=== PATIENT | male | born 1980 | race Hispanic/Latino ===

== ENCOUNTER 2021-08-20 16:59 | Emergency (ER) | payer SELFPAY ==
[2021-08-20 19:10] LABS: #Basophils 0.1 10x3/uL (0.0-0.2); #Eosinphils 1.3 10x3/uL (0.0-0.5); #Monocytes 0.4 10x3/uL (0.0-1.1); #Neutrophils 6.5 10x3/uL (1.5-8.4); %Basophils 0.9 % (0.0-2.0); %Eosinophils 11.7 % (0.0-6.0); %Lymphocytes 26.6 % (18.0-47.0); %Monocytes 3.3 % (0.0-10.0); Hemoglobin 18.1 g/dL (13.5-17.5); Mean Corpuscular HGB CONC 35.7 g/dL (32.0-36.0); Mean Corpuscular Hemoglobin 29.6 pg (27.0-33.0); Mean Platelet Volume 11.1 fl (7.4-10.4); Platelet Count 123 10x3/uL (150-450); RBC Distribution Width 12.4 % (11.5-14.5); Red Blood Cell (RBC) Count 6.11 10x6/uL (4.32-5.72); White Blood Cell (WBC) Count 11.4 10x3/uL (3.5-10.5)
[2021-08-20 19:22] LABS: ALT (SGPT) 16 U/L (8-55); AST (SGOT) 12 U/L (5-34); Albumin 3.6 g/dL (3.5-5.0); Alkaline Phosphatase 103 U/L (40-110); Anion Gap 15 mmol/L (10-20); BUN (Urea Nitrogen) 12 mg/dL (8.9-20.6); Bilirubin, Total 0.9 mg/dL (0.2-1.2); Calc. Creatinine Clearance 0 mL/min (70-130); Calcium 8.7 mg/dL (7.8-10.44); Carbon Dioxide 26 mmol/L (22-29); Chloride 99 mmol/L (98-107); Estimated GFR 112; Globulin 3.2 g/dL (2.4-3.5); Glucose 375 mg/dL (70-105); Lipase 14 U/L (8-78); Potassium 3.9 mmol/L (3.5-5.1); Protein, Total 6.8 g/dL (6.0-8.3); Sodium 136 mmol/L (136-145)
[2021-08-20 19:53] LABS: Bilirubin Neg (Negative); Blood, Urine Negative (Negative); Clarity Clear (Clear); Glucose, Urine (Dipstick) >=1000 mg/dL (Negative); Ketone, Urine 15 mg/dL (Negative); Leukocyte Negative (Negative); Nitrite Negative (Negative); Protein, Urine (Dipstick) 30 mg/dl (Neg-Trace)
[2021-08-20 20:09] LABS: Bacteria/HPF Rare-Few HPF (None Seen); Mucous/LPF 1+ LPF (<2+); RBC/HPF 0-3 HPF (0-3); Squamous Epithelial 0-3 HPF (0-3); WBC/HPF 0-3 HPF (0-3)
== END 2021-08-20 22:03 | disposition home or self-care (01) ==
LOC: CSHERS 16:59
DX: R07.9 Chest pain, unspecified (principal); M54.6 Pain in thoracic spine; E11.9 Type 2 diabetes mellitus without complications
CPT/HCPCS: 71045; 80053; 81003; 81015; 83690; 84484; 85025; 93005; 94760; 94799

== ENCOUNTER 2021-08-25 16:20 | Inpatient (IN) | payer SELFPAY ==
[~2021-08-25 16:20] MED LIST: Iopamidol 300 61% 100 ML VIAL FS ONE
[2021-08-25] MEDS ORDERED: Ondansetron PF 4 MG/2 ML Vial ONE (17:04)
[2021-08-25] MEDS ORDERED: Dicyclomine 20 MG/2 ML VIAL ONE (17:04)
[2021-08-25 17:19] LABS: Actual Bicarbonate (HCO3v) 20 mEq/L (22-28); Base Excess -1.5 mEq/L (-2.0 to +3.0); Calcium, Ionized (venous) 1.14 mmol/L (1.16-1.32); Chloride (VBG) 101 mmol/L (98-106); Hemoglobin (Hb) 18.4 g/dL (13.2-17.3); Potassium (VBG) 3.85 mmol/L (3.70-5.30); Puncture Site Other Site; RapidComm Collect By LAB TECH; Sodium 136.8 mmol/L (133-146); pH (venous) 7.48 (7.32-7.43)
[2021-08-25 17:30] LABS: Platelet Count 125 10x3/uL (150-450)
[2021-08-25 17:31] LABS: #Basophils 0.1 10x3/uL (0.0-0.2); #Eosinphils 2.5 10x3/uL (0.0-0.5); #Monocytes 0.6 10x3/uL (0.0-1.1); #Neutrophils 10.5 10x3/uL (1.5-8.4); %Basophils 0.5 % (0.0-2.0); %Eosinophils 15.3 % (0.0-6.0); %Lymphocytes 14.7 % (18.0-47.0); %Monocytes 3.5 % (0.0-10.0); %Neutrophils 65.4 % (40.0-75.0); Hemoglobin 18.7 g/dL (13.5-17.5); Mean Corpuscular HGB CONC 36.5 g/dL (32.0-36.0); Mean Corpuscular Hemoglobin 29.7 pg (27.0-33.0); Mean Corpuscular Volume 81.3 fl (81.2-95.1); Mean Platelet Volume 11.3 fl (7.4-10.4); RBC Distribution Width 12.5 % (11.5-14.5); White Blood Cell (WBC) Count 16.1 10x3/uL (3.5-10.5)
[2021-08-25 17:39] LABS: ALT (SGPT) 16 U/L (8-55); AST (SGOT) 14 U/L (5-34); Albumin 3.8 g/dL (3.5-5.0); Alkaline Phosphatase 116 U/L (40-110); Anion Gap 21 mmol/L (10-20); BUN (Urea Nitrogen) 16 mg/dL (8.9-20.6); Bilirubin, Total 1.2 mg/dL (0.2-1.2); Calc. Creatinine Clearance 0 mL/min (70-130); Calcium 9.2 mg/dL (7.8-10.44); Carbon Dioxide 18 mmol/L (22-29); Chloride 101 mmol/L (98-107); Estimated GFR 111; Globulin 3.2 g/dL (2.4-3.5); Glucose 431 mg/dL (70-105); Lipase 12 U/L (8-78); Potassium 3.6 mmol/L (3.5-5.1); Sodium 136 mmol/L (136-145)
[2021-08-25] MEDS ORDERED: Metoclopramide HCl 10 MG/2 ML VIAL ONE (18:17)
[2021-08-25 18:20] LABS: Bilirubin Neg (Negative); Blood, Urine Negative (Negative); Clarity Clear (Clear); Glucose, Urine (Dipstick) >=1000 mg/dL (Negative); Ketone, Urine 150 mg/dL (Negative); Leukocyte Negative (Negative); Nitrite Negative (Negative); Protein, Urine (Dipstick) 15 mg/dl (Neg-Trace); Specific Gravity, Urine 1.005 (1.002-1.036); Urobilinogen Normal mg/dL (Less than 2)
[2021-08-25 18:57] LABS: SARS-CoV-2 NAA Rapid Test DETECTED (NotDetected)
[2021-08-25] MEDS ORDERED: Senokot S 8.6-50 MG TAB PO PRN (19:14)
[2021-08-25] MEDS ORDERED: Calcium Carbonate 500 MG ChewTAB PO PRN (19:14)
[2021-08-25] MEDS ORDERED: Acetaminophen 325 MG TAB PO PRN (19:14)
[2021-08-25] MEDS ORDERED: Ondansetron PF 4 MG/2 ML Vial IVP PRN (19:14)
[2021-08-25] MEDS ORDERED: Guaifenesin DM 100-10/5 ML UDCUP PO PRN (19:14)
[2021-08-25] MEDS ORDERED: Dextrose 50% Abboject 50 ML SYRINGE SLOW IVP PRN (19:14)
[2021-08-25] MEDS ORDERED: Dextrose 5% in Water 1,000 ML IV PRN (19:14)
[2021-08-25] MEDS ORDERED: Ketorolac Tromethamine 30 MG/ML VIAL IVP PRN (19:17)
[2021-08-25] MEDS ORDERED: Insulin Regular 300 UNITS/3 ML VIAL ONE (19:46)
[2021-08-25] MEDS ORDERED: NS 0.9% w/ 40 MEQ KCL 1,000 ML IV SCH (21:00)
[2021-08-25 21:42] VITALS: BMI 52.5
[2021-08-25] MEDS: Famotidine/PF 20 mg/2ml Vial SLOW IVP SCH (21:44)
[2021-08-25] MEDS: Lisinopril 5 MG TAB PO SCH (21:44)
[2021-08-25] MEDS: Cholecalciferol 1,000 UNITS (25 MCG) TAB PO SCH (21:44)
[2021-08-25] MEDS: HumaLOG 300 UNITS/3 ML VIAL SC PRN (22:06)
[2021-08-25 22:20] LABS: Anion Gap 18 mmol/L (10-20); BUN (Urea Nitrogen) 13 mg/dL (8.9-20.6); Calc. Creatinine Clearance 253 mL/min (70-130); Calcium 8.9 mg/dL (7.8-10.44); Carbon Dioxide 20 mmol/L (22-29); Chloride 103 mmol/L (98-107); Estimated GFR 115; Glucose 379 mg/dL (70-105); Potassium 4.1 mmol/L (3.5-5.1); Sodium 137 mmol/L (136-145)
[2021-08-26] MEDS ORDERED: hydrALAZINE 20 MG/ML VIAL SLOW IVP PRN (00:20)
[2021-08-26 04:13] LABS: #Eosinphils 1.8 10x3/uL (0.0-0.5); #Monocytes 0.4 10x3/uL (0.0-1.1); #Neutrophils 10.3 10x3/uL (1.5-8.4); %Basophils 0.3 % (0.0-2.0); %Eosinophils 12.3 % (0.0-6.0); %Monocytes 2.5 % (0.0-10.0); %Neutrophils 72.1 % (40.0-75.0); Hemoglobin 17.3 g/dL (13.5-17.5); Mean Corpuscular Volume 83.4 fl (81.2-95.1); Mean Platelet Volume 10.6 fl (7.4-10.4); Platelet Count 126 10x3/uL (150-450); RBC Distribution Width 12.6 % (11.5-14.5); Red Blood Cell (RBC) Count 5.77 10x6/uL (4.32-5.72); White Blood Cell (WBC) Count 14.3 10x3/uL (3.5-10.5)
[2021-08-26 04:42] LABS: Anion Gap 16 mmol/L (10-20); BUN (Urea Nitrogen) 11 mg/dL (8.9-20.6); CK (CPK) 31 U/L (30-200); CRP (Inflammatory) 1.53 mg/dL (= or < 0.5); Calc. Creatinine Clearance 270 mL/min (70-130); Calcium 8.6 mg/dL (7.8-10.44); Carbon Dioxide 21 mmol/L (22-29); Chloride 105 mmol/L (98-107); Estimated GFR 117; Glucose 311 mg/dL (70-105); Magnesium 1.5 mg/dL (1.6-2.6); Potassium 4.2 mmol/L (3.5-5.1); Sodium 138 mmol/L (136-145)
[2021-08-26] MEDS: HumaLOG 300 UNITS/3 ML VIAL SC PRN ×4 (05:25→20:52)
[2021-08-26] MEDS ORDERED: Magnesium 2 GM/50 ML(in water) 2 GM in Premix Bag 1 BAG IVPB SCH (08:15)
[2021-08-26] MEDS: Famotidine/PF 20 mg/2ml Vial SLOW IVP SCH ×2 (09:08→20:53)
[2021-08-26] MEDS: Ascorbic Acid 500 mg Chewable Tablet PO SCH (09:08)
[2021-08-26] MEDS: Enoxaparin Sodium 40 MG/0.4 ML SYRINGE SC SCH (09:09)
[2021-08-26] MEDS: Lisinopril 5 MG TAB PO SCH ×2 (09:09→20:52)
[2021-08-26 12:52] LABS: Hemoglobin A1c Greater than 14.0 % (4.0-6.0)
[2021-08-26] MEDS: Cholecalciferol 1,000 UNITS (25 MCG) TAB PO SCH (20:31)
[2021-08-27] MEDS: HumaLOG 300 UNITS/3 ML VIAL SC PRN ×2 (05:54→12:23)
[2021-08-27 08:49] LABS: #Eosinphils 1.7 10x3/uL (0.0-0.5); #Monocytes 0.6 10x3/uL (0.0-1.1); #Neutrophils 5.6 10x3/uL (1.5-8.4); %Basophils 0.4 % (0.0-2.0); %Eosinophils 19.1 % (0.0-6.0); %Lymphocytes 9.3 % (18.0-47.0); %Neutrophils 62.9 % (40.0-75.0); Hemoglobin 16.2 g/dL (13.5-17.5); Mean Corpuscular HGB CONC 34.5 g/dL (32.0-36.0); Mean Corpuscular Hemoglobin 29.8 pg (27.0-33.0); Mean Corpuscular Volume 86.4 fl (81.2-95.1); RBC Distribution Width 12.8 % (11.5-14.5); Red Blood Cell (RBC) Count 5.44 10x6/uL (4.32-5.72); White Blood Cell (WBC) Count 8.9 10x3/uL (3.5-10.5)
[2021-08-27 08:50] LABS: Platelet Count 98 10x3/uL (150-450)
[2021-08-27] MEDS ORDERED: NPH, Human Insulin Isophane 300 UNIT/3 ML VIAL ONE (09:16)
[2021-08-27] MEDS: NPH, Human Insulin Isophane 300 UNIT/3 ML VIAL SC SCH ×2 (09:18→21:13)
[2021-08-27] MEDS: Enoxaparin Sodium 40 MG/0.4 ML SYRINGE SC SCH (09:18)
[2021-08-27] MEDS: Famotidine/PF 20 mg/2ml Vial SLOW IVP SCH ×2 (09:18→21:10)
[2021-08-27] MEDS: Lisinopril 5 MG TAB PO SCH ×2 (09:19→21:10)
[2021-08-27] MEDS: Ascorbic Acid 500 mg Chewable Tablet PO SCH (09:19)
[2021-08-27] MEDS: Cholecalciferol 1,000 UNITS (25 MCG) TAB PO SCH (21:10)
[2021-08-28] MEDS: HumaLOG 300 UNITS/3 ML VIAL SC PRN ×2 (04:25→12:10)
[2021-08-28 05:26] LABS: Hemoglobin 16.4 g/dL (13.5-17.5); Mean Corpuscular HGB CONC 34.4 g/dL (32.0-36.0); Mean Corpuscular Hemoglobin 29.8 pg (27.0-33.0); Mean Corpuscular Volume 86.6 fl (81.2-95.1); Mean Platelet Volume 10.9 fl (7.4-10.4); Platelet Count 94 10x3/uL (150-450); RBC Distribution Width 12.3 % (11.5-14.5); Red Blood Cell (RBC) Count 5.51 10x6/uL (4.32-5.72); White Blood Cell (WBC) Count 8.7 10x3/uL (3.5-10.5)
[2021-08-28 06:15] LABS: Platelet Morphology Comment Appears Decreased
[2021-08-28 06:16] LABS: MDiff Complete? YES; RBC Morphology Normal
[2021-08-28 06:19] LABS: Band 1 % (5-11); Eosinophils 19 % (0-10); Lymphocytes 18 % (21-51); Monocytes 9 % (0-10); Neutrophil 52 % (42-75); Reactive Lymphocytes 1 % (0-10)
[2021-08-28] MEDS: Enoxaparin Sodium 40 MG/0.4 ML SYRINGE SC SCH (09:09)
[2021-08-28] MEDS: Famotidine/PF 20 mg/2ml Vial SLOW IVP SCH (09:10)
[2021-08-28] MEDS: Lisinopril 5 MG TAB PO SCH (09:10)
[2021-08-28] MEDS: Ascorbic Acid 500 mg Chewable Tablet PO SCH (09:10)
[2021-08-28] MEDS: NPH, Human Insulin Isophane 300 UNIT/3 ML VIAL SC SCH (10:09)
[2021-08-28 18:12] VITALS: BP 103/68; TEMP 97.4
== END 2021-08-28 18:00 | disposition home or self-care (01) | DRG 177 ==
LOC: CSHERS 16:20 → CSHTELE 20:47
PROVIDERS: ADMIT Student in an Organized Health Care Education/Training Program; ATTEND Family Medicine
PROC: 8E0ZXY6 Isolation (ICD-10-PCS; principal; 2021-08-25)
DX: U07.1 COVID-19 (principal); E11.10 Type 2 diabetes mellitus with ketoacidosis without coma; Z68.43 Body mass index [BMI] 50.0-59.9, adult; I10 Essential (primary) hypertension; E86.0 Dehydration; D75.1 Secondary polycythemia; D69.6 Thrombocytopenia, unspecified; E66.01 Morbid (severe) obesity due to excess calories
CPT/HCPCS: 36415; 36416; 71045; 74177; 80048; 80053; 81003; 82010; 82550; 82805; 83036; 83605; 83690; 83735; 84484; 85025; 86140; 93005; 94760; 96361; 96365; 96366; 96372; 96375; J0500; J1650; J1815; J2405; J2765; J3475; J3480; Q9967; S0028; U0002

== ENCOUNTER 2021-11-28 16:11 | Emergency (ER) | payer OTHER ==
[2021-11-28] MEDS ORDERED: Ondansetron PF 4 MG/2 ML Vial ONE (16:44)
[2021-11-28] MEDS ORDERED: Ketorolac Tromethamine 30 MG/ML VIAL ONE (16:45)
[2021-11-28 16:50] LABS: #Monocytes 0.2 10x3/uL (0.0-1.1); #Neutrophils 9.8 10x3/uL (1.5-8.4); %Basophils 0.3 % (0.0-2.0); %Eosinophils 0.1 % (0.0-6.0); %Lymphocytes 12.6 % (18.0-47.0); %Monocytes 1.8 % (0.0-10.0); %Neutrophils 84.9 % (40.0-75.0); Mean Corpuscular HGB CONC 37.1 g/dL (32.0-36.0); Mean Corpuscular Hemoglobin 30.8 pg (27.0-33.0); Mean Platelet Volume 10.5 fl (7.4-10.4); Platelet Count 126 10x3/uL (150-450); RBC Distribution Width 11.9 % (11.5-14.5); Red Blood Cell (RBC) Count 5.84 10x6/uL (4.32-5.72); White Blood Cell (WBC) Count 11.6 10x3/uL (3.5-10.5)
[2021-11-28 17:03] LABS: ALT (SGPT) 11 U/L (8-55); AST (SGOT) 12 U/L (5-34); Alkaline Phosphatase 89 U/L (40-110); Anion Gap 16 mmol/L (10-20); BUN (Urea Nitrogen) 15 mg/dL (8.9-20.6); Calc. Creatinine Clearance 0 mL/min (70-130); Calcium 9.3 mg/dL (7.8-10.44); Carbon Dioxide 22 mmol/L (22-29); Chloride 100 mmol/L (98-107); Estimated GFR 105; Glucose 381 mg/dL (70-105); Lipase 11 U/L (8-78); Potassium 4.1 mmol/L (3.5-5.1); Sodium 134 mmol/L (136-145)
[2021-11-28] MEDS ORDERED: Promethazine HCl 25 MG/ML VIAL ONE (17:18)
== END 2021-11-28 19:23 | disposition home or self-care (01) ==
LOC: CSHERS 16:11
DX: K52.9 Noninfective gastroenteritis and colitis, unspecified (principal); E11.9 Type 2 diabetes mellitus without complications
CPT/HCPCS: 80053; 83690; 85025; 96361; 96365; 96366; 96375; J1885; J2405; J2550

== ENCOUNTER 2021-11-30 10:15 | Emergency (ER) | payer OTHER, SELFPAY ==
[2021-11-30 11:19] LABS: #Eosinphils 0.1 10x3/uL (0.0-0.5); #Monocytes 0.4 10x3/uL (0.0-1.1); #Neutrophils 7.4 10x3/uL (1.5-8.4); %Basophils 0.3 % (0.0-2.0); %Eosinophils 0.7 % (0.0-6.0); %Lymphocytes 22.7 % (18.0-47.0); %Monocytes 3.6 % (0.0-10.0); %Neutrophils 71.9 % (40.0-75.0); Hemoglobin 17.2 g/dL (13.5-17.5); Mean Corpuscular HGB CONC 36.4 g/dL (32.0-36.0); Mean Corpuscular Hemoglobin 30.3 pg (27.0-33.0); Mean Corpuscular Volume 83.1 fl (81.2-95.1); Mean Platelet Volume 10.7 fl (7.4-10.4); Platelet Count 144 10x3/uL (150-450); RBC Distribution Width 11.8 % (11.5-14.5); Red Blood Cell (RBC) Count 5.68 10x6/uL (4.32-5.72); White Blood Cell (WBC) Count 10.3 10x3/uL (3.5-10.5)
[2021-11-30 11:19] LABS: Bilirubin Neg (Negative); Blood, Urine 10 (Negative); Clarity Clear (Clear); Glucose, Urine (Dipstick) >=1000 mg/dL (Negative); Ketone, Urine 50 mg/dL (Negative); Leukocyte Negative (Negative); Nitrite Negative (Negative); Protein, Urine (Dipstick) 100 mg/dl (Neg-Trace); Urobilinogen Normal mg/dL (Less than 2)
[2021-11-30 11:26] LABS: WBC/HPF 0-3 HPF (0-3)
[2021-11-30 11:28] LABS: Bacteria/HPF 1+ HPF (None Seen); Mucous/LPF 1+ LPF (<2+); Squamous Epithelial 0-3 HPF (0-3)
[2021-11-30 11:35] LABS: ALT (SGPT) 8 U/L (8-55); AST (SGOT) 11 U/L (5-34); Albumin 3.7 g/dL (3.5-5.0); Alkaline Phosphatase 86 U/L (40-110); Anion Gap 15 mmol/L (10-20); BUN (Urea Nitrogen) 13 mg/dL (8.9-20.6); Bilirubin, Total 0.7 mg/dL (0.2-1.2); Calc. Creatinine Clearance 0 mL/min (70-130); Carbon Dioxide 21 mmol/L (22-29); Chloride 100 mmol/L (98-107); Estimated GFR 110; Globulin 3.6 g/dL (2.4-3.5); Glucose 393 mg/dL (70-105); Lipase 13 U/L (8-78); Potassium 3.9 mmol/L (3.5-5.1); Protein, Total 7.3 g/dL (6.0-8.3); Sodium 132 mmol/L (136-145)
[2021-11-30] MEDS ORDERED: Ondansetron PF 4 MG/2 ML Vial ONE (12:02)
[2021-11-30] MEDS ORDERED: Morphine 4 MG/ML VIAL ONE (12:02)
[2021-11-30] MEDS ORDERED: Iopamidol 370 76% 100 ML VIAL ONE (12:25)
== END 2021-11-30 14:45 | disposition home or self-care (01) ==
LOC: CSHERS 10:15
DX: E11.65 Type 2 diabetes mellitus with hyperglycemia (principal); R10.32 Left lower quadrant pain; I10 Essential (primary) hypertension
CPT/HCPCS: 36415; 74177; 80053; 81003; 81015; 83690; 85025; 96361; 96374; 96375; J2270; J2405; Q9967

== ENCOUNTER 2021-12-13 14:24 | Observation (INO) | payer SELFPAY ==
[2021-12-13] MEDS ORDERED: Metoclopramide HCl 10 MG/2 ML VIAL ONE (14:55)
[2021-12-13] MEDS ORDERED: Dicyclomine 20 MG/2 ML VIAL ONE (14:56)
[2021-12-13] MEDS ORDERED: Haloperidol Lactate 5 MG/ML VIAL ONE (15:25)
[2021-12-13 15:38] LABS: ALT (SGPT) 10 U/L (8-55); AST (SGOT) 15 U/L (5-34); Albumin 3.8 g/dL (3.5-5.0); Alkaline Phosphatase 74 U/L (40-110); Anion Gap 18 mmol/L (10-20); BUN (Urea Nitrogen) 19 mg/dL (8.9-20.6); Bilirubin, Total 0.9 mg/dL (0.2-1.2); CK (CPK) 33 U/L (30-200); Calc. Creatinine Clearance 0 mL/min (70-130); Carbon Dioxide 18 mmol/L (22-29); Chloride 103 mmol/L (98-107); Estimated GFR 110; Glucose 313 mg/dL (70-105); Lipase 20 U/L (8-78); Magnesium 1.5 mg/dL (1.6-2.6); Potassium 3.6 mmol/L (3.5-5.1); Protein, Total 6.8 g/dL (6.0-8.3); Sodium 135 mmol/L (136-145)
[2021-12-13 15:49] LABS: #Eosinphils 0.1 10x3/uL (0.0-0.5); #Monocytes 0.5 10x3/uL (0.0-1.1); #Neutrophils 9.1 10x3/uL (1.5-8.4); %Basophils 0.3 % (0.0-2.0); %Eosinophils 1.1 % (0.0-6.0); %Lymphocytes 17.7 % (18.0-47.0); %Monocytes 4.4 % (0.0-10.0); Hemoglobin 17.1 g/dL (13.5-17.5); Mean Corpuscular HGB CONC 36.8 g/dL (32.0-36.0); Mean Corpuscular Hemoglobin 30.4 pg (27.0-33.0); Mean Corpuscular Volume 82.6 fl (81.2-95.1); Mean Platelet Volume 10.6 fl (7.4-10.4); Platelet Count 130 10x3/uL (150-450); RBC Distribution Width 11.9 % (11.5-14.5); Red Blood Cell (RBC) Count 5.63 10x6/uL (4.32-5.72)
[2021-12-13] MEDS ORDERED: Magnesium 2 GM/50 ML BAG (IN WATER) ONE (17:38)
[2021-12-13] MEDS ORDERED: Dextrose 5% in Water 1,000 ML IV PRN (18:06)
[2021-12-13] MEDS ORDERED: Dextrose 50% Abboject 50 ML SYRINGE SLOW IVP PRN (18:06)
[2021-12-13] MEDS ORDERED: HumaLOG 300 UNITS/3 ML VIAL SC PRN ×2 (18:06)
[2021-12-13] MEDS ORDERED: hydrALAZINE 20 MG/ML VIAL SLOW IVP PRN (18:07)
[2021-12-13] MEDS ORDERED: Ondansetron ODT 4 MG TAB PO PRN (18:09)
[2021-12-13] MEDS ORDERED: Ondansetron PF 4 MG/2 ML Vial IVP PRN (18:09)
[2021-12-13] MEDS ORDERED: Acetaminophen 325 MG TAB PO PRN (18:09)
[2021-12-13] MEDS ORDERED: Electrolyte Replacement Protocol 1 EACH FS SCH (18:15)
[2021-12-13 18:22] LABS: Bilirubin Neg (Negative); Blood, Urine 10 (Negative); Clarity Clear (Clear); Glucose, Urine (Dipstick) >=1000 mg/dL (Negative); Ketone, Urine 150 mg/dL (Negative); Leukocyte Negative (Negative); Nitrite Negative (Negative); Protein, Urine (Dipstick) 30 mg/dl (Neg-Trace); Urobilinogen Normal mg/dL (Less than 2)
[2021-12-13 18:33] LABS: Bacteria/HPF 2+ HPF (None Seen); Mucous/LPF 1+ LPF (<2+); RBC/HPF 0-3 HPF (0-3); Squamous Epithelial 0-3 HPF (0-3); WBC/HPF 0-3 HPF (0-3)
[2021-12-13] MEDS: Famotidine 20 MG TAB PO SCH (21:52)
[2021-12-13] MEDS: Lisinopril 5 MG TAB PO SCH (21:52)
[2021-12-13] MEDS: Metoclopramide HCl 10 MG/2 ML VIAL IVP SCH (21:53)
[2021-12-13] MEDS: Sodium Chloride 0.9% 1,000 ML IV SCH (22:10)
[2021-12-14 03:20] LABS: SARS-CoV-2 NAA Rapid Test Not Detected (NotDetected)
[2021-12-14 06:54] LABS: #Eosinphils 0.2 10x3/uL (0.0-0.5); #Monocytes 0.4 10x3/uL (0.0-1.1); #Neutrophils 4.9 10x3/uL (1.5-8.4); %Basophils 0.5 % (0.0-2.0); %Eosinophils 2.9 % (0.0-6.0); %Lymphocytes 31.5 % (18.0-47.0); %Monocytes 5.1 % (0.0-10.0); %Neutrophils 59.8 % (40.0-75.0); Hemoglobin 15.6 g/dL (13.5-17.5); Mean Corpuscular HGB CONC 36.2 g/dL (32.0-36.0); Mean Corpuscular Hemoglobin 30.6 pg (27.0-33.0); Mean Corpuscular Volume 84.5 fl (81.2-95.1); Mean Platelet Volume 10.6 fl (7.4-10.4); Platelet Count 124 10x3/uL (150-450); RBC Distribution Width 12.2 % (11.5-14.5); White Blood Cell (WBC) Count 8.3 10x3/uL (3.5-10.5)
[2021-12-14 07:02] LABS: Anion Gap 12 mmol/L (10-20); BUN (Urea Nitrogen) 10 mg/dL (8.9-20.6); Calc. Creatinine Clearance 0 mL/min (70-130); Calcium 8.1 mg/dL (7.8-10.44); Carbon Dioxide 21 mmol/L (22-29); Chloride 108 mmol/L (98-107); Estimated GFR 117; Glucose 173 mg/dL (70-105); Magnesium 1.8 mg/dL (1.6-2.6); Potassium 3.4 mmol/L (3.5-5.1); Sodium 138 mmol/L (136-145)
[2021-12-14] MEDS ORDERED: Potassium Chloride 20 MEQ TAB PO SCH (07:30)
[2021-12-14] MEDS ORDERED: Magnesium 2 GM/50 ML(in water) 2 GM in Premix Bag 1 BAG IVPB SCH (07:30)
[2021-12-14] MEDS: Sodium Chloride 0.9% 1,000 ML IV SCH (07:35)
[2021-12-14] MEDS ORDERED: Lantus 1000 UNITS/10 ML VIAL SC SCH (09:00)
[2021-12-14] MEDS: Famotidine 20 MG TAB PO SCH (10:21)
[2021-12-14] MEDS: Lisinopril 5 MG TAB PO SCH (10:21)
[2021-12-14] MEDS: Metoclopramide HCl 10 MG/2 ML VIAL IVP SCH (10:22)
[2021-12-14 12:27] LABS: Hemoglobin A1c 11.6 % (4.0-6.0)
[2021-12-15 12:14] VITALS: BP 100/64; TEMP 98.1
[2021-12-15 12:16] VITALS: BMI 45.5
== END 2021-12-14 13:38 | disposition home or self-care (01) ==
LOC: CSHERS 14:24 → CSHTELE 18:20
PROVIDERS: ADMIT Family Medicine; ATTEND Family Medicine
DX: R11.2 Nausea with vomiting, unspecified (principal); E11.9 Type 2 diabetes mellitus without complications; I16.0 Hypertensive urgency; I10 Essential (primary) hypertension; R53.1 Weakness; Z79.4 Long term (current) use of insulin; Z79.899 Other long term (current) drug therapy; Z20.822 Contact with and (suspected) exposure to COVID-19; E66.01 Morbid (severe) obesity due to excess calories; Z68.42 Body mass index [BMI] 45.0-49.9, adult; G47.33 Obstructive sleep apnea (adult) (pediatric); E83.42 Hypomagnesemia; D69.6 Thrombocytopenia, unspecified; Z91.14 Patient's other noncompliance with medication regimen
CPT/HCPCS: 36415; 36416; 80048; 80053; 81003; 81015; 82550; 83036; 83690; 83735; 84484; 85025; 87086; 93005; 96361; 96372; 96374; 96375; 96376; G0378; J1630; J1815; J2765; J3475; J7050; U0002

== ENCOUNTER 2021-12-26 19:44 | Emergency (ER) | payer SELFPAY ==
[2021-12-26 21:22] LABS: #Basophils 0.1 10x3/uL (0.0-0.2); #Eosinphils 1.2 10x3/uL (0.0-0.5); #Monocytes 0.5 10x3/uL (0.0-1.1); #Neutrophils 8.1 10x3/uL (1.5-8.4); %Basophils 0.6 % (0.0-2.0); %Eosinophils 9.7 % (0.0-6.0); %Lymphocytes 20.5 % (18.0-47.0); %Monocytes 3.8 % (0.0-10.0); Hemoglobin 17.9 g/dL (13.5-17.5); Mean Corpuscular HGB CONC 37.4 g/dL (32.0-36.0); Mean Corpuscular Hemoglobin 30.5 pg (27.0-33.0); Mean Corpuscular Volume 81.4 fl (81.2-95.1); Mean Platelet Volume 10.6 fl (7.4-10.4); Platelet Count 134 10x3/uL (150-450); RBC Distribution Width 11.9 % (11.5-14.5); Red Blood Cell (RBC) Count 5.87 10x6/uL (4.32-5.72); White Blood Cell (WBC) Count 12.4 10x3/uL (3.5-10.5)
[2021-12-26 21:38] LABS: ALT (SGPT) 11 U/L (8-55); AST (SGOT) 11 U/L (5-34); Albumin 3.9 g/dL (3.5-5.0); Alkaline Phosphatase 80 U/L (40-110); Anion Gap 18 mmol/L (10-20); BUN (Urea Nitrogen) 18 mg/dL (8.9-20.6); Bilirubin, Total 1.1 mg/dL (0.2-1.2); Calc. Creatinine Clearance 0 mL/min (70-130); Calcium 9.3 mg/dL (7.8-10.44); Carbon Dioxide 18 mmol/L (22-29); Chloride 102 mmol/L (98-107); Estimated GFR 112; Globulin 3.7 g/dL (2.4-3.5); Glucose 280 mg/dL (70-105); Lipase 7 U/L (8-78); Potassium 3.6 mmol/L (3.5-5.1); Protein, Total 7.6 g/dL (6.0-8.3); Sodium 134 mmol/L (136-145)
[2021-12-26] MEDS ORDERED: Dicyclomine 20 MG/2 ML VIAL ONE (23:40)
[2021-12-26] MEDS ORDERED: Ondansetron PF 4 MG/2 ML Vial ONE (23:41)
[2021-12-26] MEDS ORDERED: Ketorolac Tromethamine 30 MG/ML VIAL ONE (23:41)
[2021-12-27 00:18] LABS: Acetaminophen Less than 10.0 mcg/mL (10.0-30.0); Alcohol Less than 10 mg/dL (Less than 10); Salicylate Less than 8.0 mg/dL (15.0-30.0)
[2021-12-27 00:26] LABS: Amphetamine Not Detected (NotDetected); Barbiturates Screen Not Detected (NotDetected); Benzodiazepine Screen Not Detected (NotDetected); Cocaine Metabolite Screen Not Detected (NotDetected); Methadone Not Detected (NotDetected); Methamphetamine Not Detected (NotDetected); Opiate Screen Not Detected (NotDetected); Oxycodone Screen Not Detected (NotDetected); Phencyclidine (PCP) Not Detected (NotDetected); THC/Cannabinoid Screen Not Detected (NotDetected); Tricyclic Screen Not Detected (NotDetected)
== END 2021-12-27 03:16 | disposition home or self-care (01) ==
LOC: CSHERS 19:44
DX: E11.43 Type 2 diabetes mellitus with diabetic autonomic (poly)neuropathy (principal); K31.84 Gastroparesis; Z79.84 Long term (current) use of oral hypoglycemic drugs; I10 Essential (primary) hypertension; Z79.899 Other long term (current) drug therapy
CPT/HCPCS: 80053; 80306; 80307; 83690; 85025; 93005; 96361; 96372; 96374; 96375; J1885; J2405